=== PATIENT | female | born 1960 | race Caucasian/White ===

== ENCOUNTER → 2021-11-08 12:26 | Outpatient (CLI) | payer MEDICARE, SELFPAY ==
[2021-11-08 13:23] LABS: Add Manual Diff / Slide Review NO; Basophils Absolute Auto 100 /uL (0-100); Basophils Percent Auto 0.8 % (0-2); Eosinophils Absolute Auto 100 /uL (0-450); Eosinophils Percent Auto 1.9 % (2-4); Lymphocytes Absolute Auto 2100 /uL (1100-4500); Lymphocytes Percent Auto 29.5 % (25-40); Mean Corpuscular HGB Conc 33.4 % (30-36); Mean Corpuscular Hemoglobin 28.9 PG (26-34); Mean Corpuscular Volume 86.5 fL (80-100); Monocytes Absolute Auto 700 /uL (0-900); Monocytes Percent Auto 9.7 % (3-14); Neutrophils Absolute Auto 4200 /uL (1500-7000); Neutrophils Percent Auto 58.1 % (50-75); Platelet Count 325 X10^3/uL (150-400); Red Blood Cell Count 4.86 X10^6/uL (4.0-5.2); Red Cell Distribution Width 14.3 % (11.6-14.8); White Blood Cell Count 7.3 X10^3/uL (4.5-11.0)
[2021-11-08 14:02] LABS: Alanine Aminotransferase 32 IU/L (<35); Albumin 4.5 g/dL (3.5-5.0); Albumin Globulin Ratio 1.7 (1.0-2.8); Alkaline Phosphatase 89 U/L (38-126); Aspartate Aminotransferase 33 IU/L (14-36); BUN Creatinine Ratio 20.8 (6-22); Bilirubin Total 0.3 mg/dL (0.2-1.3); Blood Urea Nitrogen 21 mg/dL (7-17); Calcium 10.4 mg/dL (8.4-10.2); Carbon Dioxide 31 mmol/L (22-32); Chloride 102 mmol/L (98-107); Estimated Glomerular Filt Rate 55.5 mL/min (>60); Globulin 2.7 g/dL (1.7-4.1); Glucose 83 mg/dL (80-110); HEMOLYSIS < 15 (0-50); Sodium 141 mmol/L (137-145); Total Protein 7.2 g/dL (6.3-8.2)
== END ==
PROVIDERS: PCP Physician Assistant; Referring Provider Orthopaedic Surgery Orthopaedic Surgery of the Spine; Visit Provider Orthopaedic Surgery Orthopaedic Surgery of the Spine
DX: Z01.812 Encounter for preprocedural laboratory examination (principal); Z01.818 Encounter for other preprocedural examination
CPT/HCPCS: 36415; 80053; 85025; 93005; 93010

== ENCOUNTER → 2021-12-26 10:06 | Outpatient (CLI) | payer MEDICARE, SELFPAY ==
[2021-12-26 12:38] LABS: COVID19 -Nasal RAPID Negative (Negative)
== END ==
PROVIDERS: PCP Physician Assistant; Referring Provider Family Medicine Sleep Medicine; Visit Provider Family Medicine Sleep Medicine
DX: Z20.822 Contact with and (suspected) exposure to COVID-19 (principal)
CPT/HCPCS: 87635; C9803

== ENCOUNTER 2021-12-28 12:26 | Day surgery (SDC) | payer MEDICARE, SELFPAY ==
[2021-11-14 12:50] VITALS: BMI 29.0
[2021-12-28] VITALS (15 sets, daily range): BP systolic 94–120; BP diastolic 46–79; PULSE 64–97; RESP 10–18; TEMP 36.2–36.8; O2SAT 93–99; BMI 29.0
--- NOTE | 2021-12-28 | DI.RAD.S_ITS ---
PROCEDURE: XR LUMBAR SPINE 2-3V INDICATIONS: L4-5 TLIF TECHNIQUE: Intraoperative fluoroscopic views COMPARISON: None. FINDINGS: Intraoperative fluoroscopic views of L4-5 TLIF IMPRESSION: Intraoperative fluoroscopic views of L4-5 TLIF Dictated by: Jian Ashby M.D. on 12/29/2021 at 11:08 Approved by: Jian Ashby M.D. on 12/29/2021 at 11:09
[2021-12-28] MEDS: LACTATED RINGERS 1,000 ML 42 ML IV (13:35)
--- NOTE | 2021-12-28 15:08 | SUR.PREOP ---
Brendaer placed on pt and updated on OR time.
--- NOTE | 2021-12-28 15:31 | PM.PREOP ---
Pre-operative Note COVID-19 COVID-19 status: Negative Result date/Date tested (Pos, Neg/Pending): 12/27/21 Criteria for continued procedure: Expected advancement of disease process, Possibility delay results in more complex future surgery or treatment, Increased loss of function, Continuing or worsening of significant or severe pain, Deterioration of the patient's condition or overall health and Delay expected to result in less-positive ultimate med/surg outcome Interval Note History & Physical reviewed/Exam performed by Physician: Yes Changes to H&P: No
--- NOTE | 2021-12-28 15:56 | P.HP_ITS ---
History of Present Illness History of Present Illness Date Patient Seen: 12/28/21 Time Patient Seen: 15:50 Date of Onset of Symptoms: 10/04/20 Chief complaint: OPB Narrative: Ms. Haro is here for evaluation of her lumbar spine. She has chronic back pain with left leg pain and weakness that has been progressive over time. After discussing risks and benefits of surgical treatment, patient elected to proceed with surgery. Patient History Medical History Anxiety Depression Fibromyalgia Heartburn HLD (hyperlipidemia) Sciatica Surgical History History of ankle surgery (10/2020) History of back surgery (~2013) History of hysterectomy History of surgery History of tonsillectomy and adenoidectomy Hx of foot surgery S/P cervical spinal fusion (~2010) Family & Social History Social History: household members spouse,family Prior Living Arrangements House Safety & Behavioral: Feels Safe in Current Yes Environment Been Physically Hurt or No Threatened By a Person Suicidal Ideation Description None Suicide Plan Description No Plan Tobacco & Substance use: Tobacco type cigarettes Smoking Status Former smoker alcohol intake former Substance Use Type marijuana Meds Home Medications and Allergies Home Medications Medication Instructions Recorded Confirmed Type acetaminophen 500 mg tablet 1,000 mg PO TID-QID 11/14/21 12/28/21 History diclofenac sodium 75 mg 75 mg PO BID 11/14/21 12/28/21 History tablet,delayed release duloxetine 60 mg capsule,delayed 120 mg PO DAILY 11/14/21 12/28/21 History release ezetimibe 10 mg tablet 10 mg PO DAILY 11/14/21 12/28/21 History pregabalin 100 mg capsule 100 mg PO TID 11/14/21 12/28/21 History Allergies Allergy/AdvReac Type Severity Reaction Status Date / Time iodine Allergy Severe Rash Verified 11/14/21 13:05 prochlorperazine Allergy Severe Leg Verified 11/14/21 13:05 [From Compazine] tremors, tongue swelling, jaw locks up erythromycin base AdvReac Intermediate Gastrointestinal Verified 11/14/21 13:05 Upset Exam Vital Signs (past 8 hours): - 12/28/21 13:28 Temperature 97.3 F L Pulse Rate 66 Respiratory Rate 12 Blood Pressure 116/79 Pulse Oximetry 96 Oxygen Delivery Method Room Air Back/Spine/Pelvis Other: Back pain with ROM in lower lumbar. Neuro Other: + straight leg raise to LLE, sensibility decreased to bilateral L4, L5 derma tome, motor strength is 4/5 in bilateral TA/EHL. Assessment & Plan Assessment & Plan narrative: Patient failed conservative care with persisting pain and weakenss in both legs. Risks for surgery include but limited to bleeding, infection, nerve/dura/blood vessel/bowel/bladder injury, need for additional procedure, even . Patient understands and would like to proceed with surgery. I scheduled her for L4-5 TLIF. Time Spent With Patient Critical Care time: I spent a total of [] minutes of critical care time on this patient's care today; this time is exclusive of procedural time.
[2021-12-28] MEDS: CEFAZOLIN 2 GM/20 ML SYRINGE IV ×2 (16:33→23:53)
[2021-12-28] MEDS: BUPIVACAINE 0.25% (PF) 30 ML, EPINEPHrine 0.3 MG INJ (16:51)
[2021-12-28] MEDS: BUPIVACAINE LIPOSOME 266 MG/20 ML VIAL INJ (16:51)
--- NOTE | 2021-12-28 16:54 | SUR.OPER ---
Prone on spine table, head in foam head support, padded chest and pelvic supports, gel pad at knees, lower legs supported by pillows; nipples, genitalia and toes free of pressure, arms secured on foam padded arm boards at <90 degrees abduction. Tape over blanket at thigh secured to table.Gel pad placed between heels.
--- NOTE | 2021-12-28 17:00 | SUR.OPER ---
Patients' cell phone and glasses placed in patients belongings bag by pre-op RN.
--- NOTE | 2021-12-28 18:26 | P.OP_ITS ---
Operative Date/Time/Diagnoses Date of procedure: 12/28/21 Time of procedure: 15:00 Pre-op diagnosis: 1. L4-5 spondylolisthesis 2. L4-5 spinal stenosis with neurogenic claudication Post-op diagnosis: same Procedure & Clinicians Procedure: 1. L4-5 Postero-lateral and posterior interbody fusion 2. L4-5 interbody cage placement. 3. L4-5 decompressive laminectomy with bilateral facetecomies 4. L4-5 Posterior non-segmental instrumentation 5. [employer] of bone marrow from iliac crest 6. Utilization of microsurgical technique and operating microscope Same procedure as scheduled: Yes Indications: Patient has been having chronic back pain and worsening lumbar radiculopathy. Patient failed multiple conservative management with worsening pain weakness and numbness in her lower extremity. Patient has been having difficulty performing activity of daily living. After discussing risks benefits of treatment options, patient elected proceed with surgery. Surgeon: Sheng Arceo Mortgage Sales Manager: Jacque Hopkins Click Yes if Unassisted: No Anesthesia Type: General Operative Notes Closure Type: primary Specimen(s): none sent Prosthetic devices, grafts, tissues, transplants, or devices: Globus revolve screws, Sable cage Estimated Blood Loss (mL): 50 Blood products transfused: none Procedure in detail: Patient was seen in the preoperative area. Risks and benefits of the surgery was discussed with the patient. Informed consent was obtained from the patient and placed in the chart. Surgical site was marked. Patient was taken to the operative room. General anesthesia was administered. Prophylactic antibiotic was given to the patient less than 30 min before the incision was made. Patient was placed into a prone position on the Willie table. Patient's back was then prepped and draped in the sterile fashion. Time-out was performed at this time. Using AP and lateral C-arm imaging the interval between L4-5 was identified and marked on patient's back. A 2 inch incision 2 in from midline was made on the left side first. The fascia was incised in line with skin incision. Globus MARS retractors was placed inside the incision and docked onto the L4 lamina. Using microsurgical technique and operating microscope, a L4 laminectomy and L4-5 facetectomy was performed using a Kerrison rongeur. The disc space at L4-5 was identified. And a total diskectomy was performed at L4-5 level. The endplates were decorticated using a rasp and shaver. The total diskectomy and decortication was performed at L4-5 level in order to to accomplish a L4-5 fusion. The local bone from the laminectomy and facetectomy was saved for local bone grafting. After the total diskectomy and decortication was completed, Trifecta bone graft material was combined with local bone that was harvested earlier. At this time, a separate skin is incision was made over the iliac crest. A Jamshidi needle was inserted into the iliac crest through a separate skin incision. 5 cc of bone marrow aspiration was obtained through the separate skin incision using a Jamshidi needle from the iliac crest. The bone marrow aspiration was combined with local bone and the Trifecta bone grafting material. The bone grafting material was placed into the L4-5 interbody space along with a expandable cage. The cage was expanded to its maximum height using the torque limiting screwdriver. At this time a mirror image incision was made on the right side. The fascia was incised in line with the skin incision. Globus MARS retractor was inserted and docked onto the L4-5 posterolateral gutter. Using the power drill, posterior- lateral decortication was performed at L4-5 level until bleeding cortical bone was identified. The remaining bone grafting material was placed into the L4-5 posterior lateral gutter he order to accomplish posterolateral fusion at the L4- 5 level. Using the double C-arm technique, pedicle screws were placed into the L4-5 pedicles bilaterally. This was done by placing the Jamshidi needle into the pedicles, then placing the guidewires over the Jamshidi needle, and finally placing the cannulated screws over the guidewires bilaterally. After the pedicle screws were placed, 2 titanium rods was locked into the heads of the pedicle screws using locking caps and torque limiting screwdriver. After all the hardware was placed, and confirmed with AP and lateral C-arm imaging, the wound was then irrigated with sterile normal saline and packed with Ray-Marques gauze for 3 min to accomplish hemostasis. After the gauze was removed the deep fascia was closed with #1 Vicryl suture. The subcutaneous layer was closed with 2-0 Vicryl. The skin was closed with skin maral. Patient tolerated the procedure well. There were no complications. Complications: none Post-operative Condition: stable Disposition: PACU Plan for aftercare: Admit to inpatient hospital
[2021-12-28] MEDS: HYDROMORPHONE 2 MG INJ IV ×4 (18:58→19:15)
[2021-12-28] MEDS: OXYCODONE IR 5 MG TABLET PO (19:21)
--- NOTE | 2021-12-28 19:52 | PC.NURSE ---
report from PACU spoke w/ EMORY Castro. patient is heading up to room 215 s/p L4-L5 TLIF. arrived to floor at 1999. a/o, able to voice needs. + CSM checks, dressing to lower spine shows red drainage approx [id number] in size. ice pack in place. CNAs are getting her settled. josias is in the room. patient reports pain 9/10 w/ no facial grimacing, no moaning. appears to be comfortable and drifts off to sleep when not engaged in conversation.
[2021-12-28] MEDS: MAG HYDROX/ALUM/SIMETH 30 ML UDC PO (20:27)
[2021-12-28] MEDS: MAGNESIUM HYDROXIDE 30 ML UDC PO (20:27)
[2021-12-28] MEDS: SENNOSIDES 8.6 MG TABLET 17.2 MG PO (20:27)
[2021-12-28] MEDS: SODIUM CHLORIDE 0.9% 1,000 ML 100 ML IV (20:27)
[2021-12-28] MEDS: ONDANSETRON 4 MG/2 ML INJ IV (20:29)
[2021-12-28] MEDS: DOCUSATE 100 MG CAPSULE PO (20:29)
[2021-12-28] MEDS: hydrOXYzine pamoate 25 MG CAPSULE PO (20:30)
[2021-12-28] MEDS: PREGABALIN 50 MG CAPSULE 100 MG PO (20:30)
[2021-12-28] MEDS: ACETAMINOPHEN 325 MG TABLET 650 MG PO (20:30)
[2021-12-28] MEDS: HYDROMORPHONE 0.5 MG INJ IV (21:09)
[2021-12-28] MEDS: OXYCODONE IR 5 MG TABLET 10 MG PO (21:10)
[2021-12-29] MEDS: OXYCODONE IR 5 MG TABLET 10 MG PO ×4 (00:11→11:40)
[2021-12-29] MEDS: HYDROMORPHONE 0.5 MG INJ IV ×2 (00:12→04:04)
[2021-12-29 03:57] VITALS: BP 121/67; PULSE 84; RESP 17; TEMP 36.8; O2SAT 94
--- NOTE | 2021-12-29 07:45 | PM.DS.1 ---
History of Present Illness History of Present Illness Date Patient Seen: 12/29/21 Time Patient Seen: 07:45 Chief complaint: OPB Narrative: Operative Date/Time/Diagnoses Date of procedure: 12/28/21 Time of procedure: 15:00 Pre-op diagnosis: 1. L4-5 spondylolisthesis 2. L4-5 spinal stenosis with neurogenic claudication Post-op diagnosis: same Procedure & Clinicians Procedure: 1. L4-5 Postero-lateral and posterior interbody fusion 2. L4-5 interbody cage placement. 3. L4-5 decompressive laminectomy with bilateral facetecomies 4. L4-5 Posterior non-segmental instrumentation 5. [place] of bone marrow from iliac crest 6. Utilization of microsurgical technique and operating microscope Same procedure as scheduled: Yes Indications: Patient has been having chronic back pain and worsening lumbar radiculopathy. Patient failed multiple conservative management with worsening pain weakness and numbness in her lower extremity.? Patient has been having difficulty performing activity of daily living.? After discussing risks benefits of treatment options, patient elected proceed with surgery. Surgeon: Sheng Arceo Farm Products Shipper: Jacque Hopkins Click Yes if Unassisted: No Anesthesia Type: General Operative Notes Closure Type: primary Specimen(s): none sent Prosthetic devices, grafts, tissues, transplants, or devices: Globus revolve screws, Sable cage Estimated Blood Loss (mL): 50 Blood products transfused: none Discharge Providers Provider Date of admission: 12/28/2021 Discharge Date: 12/29/21 Primary care physician: Juana Geronimo PA-C Consults: 12/28/21 19:45 Consult to Occupational Therapy Evaluate & Treat Comment: Physician Instructions: Evaluate and treat Consult to Physical Therapy Evaluate & Treat Comment: Physician Instructions: Evaluate and Treat Discharge provider: Jacque Hopkins PA-C Summary Hospital Course Discharge Diagnosis: s/p lumbar fusion Hospital Course: Ms Haro's hospital course was unremarkable. On POD#1, she was feeling well and her pain was well-controlled. She wanted to go home. She was eating and voiding without difficulty. She has help at home from her . She was evaluated by PT prior to discharge. Exam Vital Signs (past 8 hours): - 12/29/21 03:57 Temperature 98.3 F Pulse Rate 84 Respiratory Rate 17 Blood Pressure 121/67 Pulse Oximetry 94 Oxygen Delivery Method Room Air Oxygen Flow Rate 0 Narrative Exam Narrative: AA&O x 3. 5/5 strength in DF, PF, EHL, quadriceps, and hamstrings bilaterally. Sensation to touch intact throughout BLE. Calves soft, compressible, nontender, and without palpable cords or masses. PFSH Medical History Anxiety Depression Fibromyalgia Heartburn HLD (hyperlipidemia) Sciatica Surgical History History of ankle surgery (10/2020) History of back surgery (~2013) History of hysterectomy History of surgery History of tonsillectomy and adenoidectomy Hx of foot surgery S/P cervical spinal fusion (~2010) Social History household members: spouse and family Smoking Status: Former smoker alcohol intake: former Discharge Assessment & Plan Assessment and Plan Assessment: POD#1 s/p 1-level transforaminal lumbar interbody fusion. Recovery as expected. Plan of Treatment: Discharge home with multimodal pain control. Discharge Plan Discharge Plan Patient Disposition: Home Discharge orders & Medications Discharge Orders: Discharge (Order); Ordered 12/29/21 Ordered By: Jacque Hopkins Prescriptions: New hydroxyzine pamoate 25 mg Capsule 25 mg PO Q4HR PRN (Reason: muscle spasm) Qty: 180 1RF docusate sodium 100 mg Capsule 100 mg PO BID Qty: 60 2RF oxycodone 5 mg tablet 5 mg PO Q4H PRN (Reason: pain (scale score 7-10)) Qty: 42 0RF Continued acetaminophen 500 mg Tablet 1,000 mg PO TID-QID 0RF diclofenac sodium 75 mg Tablet,Delayed Release (Dr/Ec) 75 mg PO BID 0RF ezetimibe 10 mg Tablet 10 mg PO DAILY 0RF Label Comments: Takes around noon duloxetine 60 mg Capsule,Delayed Release(Dr/Ec) 120 mg PO DAILY 0RF pregabalin 100 mg Capsule 100 mg PO TID 0RF Follow up/Referrals: Juana Geronimo PA-C [Primary Care Provider] - Sheng Arceo MD [Physician] - As previously scheduled (Follow up with Dr Arceo on 01/12/2022 @ 11:00 at [facility] office in [place]) Diet/Activity/Treatments Diet: Diet as Tolerated Activity: Walk often! No deep bending (over 90 degrees) or twisting at the waist. Skin/Wound/Dressing Care Report to your healthcare provider any signs of infection, such as:: chills, fever, night sweats, increased pain, unusual drainage and unusual redness Dressing: Leave dressing in place until follow up in office; may remove it it becomes wet inside. May shower with covering over dressing. No bathing or otherwise soaking incisions. Do not apply creams, ointments, or lotions to incisions. Visit Report/Discharge Packet Instructions: DI for Transforaminal Lumbar Interbody Fusion Stand Alone Forms: Surgery Discharge Discharge Data Primary Care Provider: Juana Geronimo Attending Provider: Sheng Arceo VTE Deep Vein Thrombosis/Pulmonary Embolism Present on Admission: No
[2021-12-29 08:00] VITALS: BP 121/67; PULSE 96; RESP 16; TEMP 36.8; O2SAT 94
[2021-12-29] MEDS: CEFAZOLIN 2 GM/20 ML SYRINGE IV (08:20)
[2021-12-29] MEDS: PREGABALIN 50 MG CAPSULE 100 MG PO (08:20)
[2021-12-29] MEDS: DOCUSATE 100 MG CAPSULE PO (08:20)
[2021-12-29] MEDS: DULOXETINE 30 MG CAPSULE 120 MG PO (08:20)
[2021-12-29] MEDS: EZETIMIBE 10 MG TABLET PO (08:25)
--- NOTE | 2021-12-29 10:09 | OT.IP.EVAL ---
Current Diagnoses Cauda equina syndrome (12/28/21) Spondylolisthesis, lumbar region (12/28/21) Spinal stenosis, lumbar region with neurogenic claudication (12/28/21) Arthrodesis status (12/28/21) Surgery Performed Operation Date: 12/28/21 14:45 Actual Procedures p L4-5 TLIF(Not Applicable) - Sheng Arceo MD Past Medical History (Last Reviewed 12/28/21 @ 15:58 by Sheng Arceo MD) Anxiety Depression Fibromyalgia Heartburn History of ankle surgery (10/2020) History of back surgery (~2013) History of hysterectomy History of surgery History of tonsillectomy and adenoidectomy HLD (hyperlipidemia) Hx of foot surgery S/P cervical spinal fusion (~2010) Sciatica Surgical History (Last Reviewed 12/28/21 @ 15:58 by Sheng Acreo MD) History of ankle surgery (10/2020) History of back surgery (~2013) History of hysterectomy History of surgery History of tonsillectomy and adenoidectomy Hx of foot surgery S/P cervical spinal fusion (~2010) Occupational Therapy Inpatient Evaluation/Re-Eval M1 PT/OT-IP Prior Functional Status Start: 12/29/21 11:58 Freq: NEEDED Status: Active Protocol: Document 12/29/21 09:30 [facility] (Rec: 12/29/21 12:17 [facility] [id number]) Medical Review Prior Functional Status Communication Independent Mobility and Gait Pt states used a SPC outside and furniture cruise in side. Activities of Daily Living and IADL's Pt needing increased time for ADL and IADL. Social History Household Members spouse,family Living Arrangements House NO steps to enter the front door. Pt has 15 steps with left hand rail going up. Home Environment Standard Height Toilet,Walk in Shower-downstairs, tub/shower upstairs Home Equipment Four Wheel Walker,Straight Cane,Hand Held Shower,Long Handled Shoe Horn,Orthodontic Technician Assistant,Grab Bars Near Toilet Additional Social History Comment Built in seat for shower M2 OT-IP Current Condition Start: 12/29/21 11:58 Freq: Status: Active Protocol: Document 12/29/21 09:30 [facility] (Rec: 12/29/21 12:17 [facility] [id number]) Occupational Therapy Current Condition Current Condition Evaluation Date 12/29/21 Treatment Diagnosis S/p L4-5 TLIF Diagnosis Onset Date 12/28/21 Post Operative Precautions Lumbar Precautions Log Roll,No Twisting,Limit Bending,Lifting Restriction of 10 lbs,Gait Belt above Incisional Area M3 OT- IP Subjective and Pain Start: 12/29/21 11:58 Freq: Status: Active Protocol: Document 12/29/21 09:30 [facility] (Rec: 12/29/21 12:17 [facility] [id number]) OT- Subjective Occupational Therapy Visit Type Type Initial Evaluation Visit Start Time 09:30 Visit Stop Time 10:09 Total Visit Minutes 39 Occupational Therapy Visit Comments Patient Comments Pt agreed to get up for OT eval. Patient/Caregiver Goals TO go home OT Pain Assessment Pain When Pain Assessed At Rest Pain Present Pain Present Pain Reported Location Lower Back Intensity 5 Scale Used Numeric (0 - 10) M4 OT- IP ADL's Start: 12/29/21 11:58 Freq: Status: Active Protocol: Document 12/29/21 09:30 [facility] (Rec: 12/29/21 12:17 [facility] [id number]) OT [id number] Comments OT Self-Feeding Comments Not at meal time. OT ADL-Grooming General Evaluation Grooming Ability Standby Assistance Areas Needing Assistance Retrieving/Set-up of Grooming Items OT ADL-Oral Care General Eval Oral Care Ability Standby Assistance Comments Oral Care Comments VC to hinge at her hips while spitting into the sink or spit into a cup to best follow her back precautions. OT ADL-Dressing General Eval Lower Body Dressing Ability Maximum Assistance Areas Needing Assistance Socks Comments OT Dressing Comments Showed pt LB dressing equipment , however states that her will just assist with her dressing needs. OT ADL-Toileting Comments OT Toileting Comments Pt not having to go. OT ADL-Bathing Comments OT Bathing Comments Pt has a built in seat and may benefit form a shower chair. M5 OT- IP IADL's Start: 12/29/21 11:58 Freq: Status: Active Protocol: Document 12/29/21 09:30 [facility] (Rec: 12/29/21 12:17 [facility] [id number]) OT-Instrumental Activities of Daily Living Home Safety Awareness Awareness of Need for Assistance at Home Good Awareness Ability to Problem Solve Emergency Able to Problem Solve Situations Home Safety Comments Pt's to be home to assist to assist pt for all her needs. M6 OT- IP Functional Cognition Start: 12/29/21 11:58 Freq: Status: Active Protocol: Document 12/29/21 09:30 [facility] (Rec: 12/29/21 12:17 [facility] [id number]) Cognitive Factors Limiting Selfcare Function Cognitive Ability Level of Alertness Alert Attention Span Ability Capable of Focused Attention, Capable of Sustained Attention Ability to Follow Commands Able to Follow One Step Commands Memory Description No Deficits Noted Safety Awareness Underestimates Need for Assistance Cognitive Comments Cognitive Assessment Comments VC to keep the FWW in front of her at all times. VC to push up from the bed when coming to stand. Pt tends to want to grab the FWW to stand. Educated if insisting on doing so to be sure her is there to hold onto the FWW. OT- Vision and Hearing OT- Hearing Assessment OT- Hearing Assessment WFL OT- Vision Assessment Visual Acuity Glasses For Reading M7 OT- IP Mobility and Balance Start: 12/29/21 11:58 Freq: Status: Active Protocol: Document 12/29/21 09:30 [facility] (Rec: 12/29/21 12:17 [facility] [id number]) OT- Bed Mobility Assessment Supine to Sit Supine to Sit Assist Contact Guard Assistance,1 Person Assistance Sit to Supine Sit to Supine Assist Minimal Assistance,1 Person Assistance OT-Transfer Assessment Sit to and From Stand Sit to and from Stand Contact Guard Assistance Transfers Transfer Ability Contact Guard Assistance Technique Transfer Destination Bed,Chair Transfer Technique Stand Step Pivot Devices Transfer Assistive Devices Gait Belt,Front Wheeled Walker OT- Balance Assessment Sitting Balance and Reactions Static Sitting Balance Ability Good Dynamic Sitting Balance Ability Fair Standing Balance and Reactions Static Standing Balance Ability Fair M8 OT- IP Objective Assessments Start: 12/29/21 11:58 Freq: Status: Active Protocol: Document 12/29/21 09:30 [facility] (Rec: 12/29/21 12:17 [facility] [id number]) OT-Muscle Tone Assessment Muscle Tone WNL Yes M9 OT- IP Assessment and Plan Start: 12/29/21 11:58 Freq: Status: Active Protocol: Document 12/29/21 09:30 [facility] (Rec: 12/29/21 12:17 [facility] [id number]) OT Summary Assessment and Plan Potential Rehabilitation Potential Good Analytic Complexity at Evaluation Low Summary OT Impairments Pain,Balance,Functional Mobility,Dressing,Toileting, Bathing,Toilet Transfers, Shower Transfers Progress Towards Goals Progressing Toward Goals Assessment Summary Pt low complexity and main barriers are steps, and now needing one person assist for ADl and mobility needs. Pt's present and states will be able to assist with her needs. Pt looking to go home when medically stable. Goals Grooming Goal Independent Dressing Goal Moderate Assistance Toileting Goal Standby Assistance Bathing Goal Minimal Assistance Toilet Transfer Goal Independent Shower Transfer Goal Independent Days to Meet Goals 5 Frequency of Treatment Frequency Of Treatment Once a Day Treatment Plan OT Treatment Plan ADL Training,Functional Mobility,Patient/Family Education,Discharge Planning Other Treatment Recommendations and Next Caregiver training Treatment Focus Discharge Recommendations OT Discharge Recommendations Home with Assistance Home Equipment Needs FWW Transportation Needs at Discharge Private Vehicle
--- NOTE | 2021-12-29 10:50 | PT.IIE ---
Current Diagnoses Cauda equina syndrome (12/28/21) Spondylolisthesis, lumbar region (12/28/21) Spinal stenosis, lumbar region with neurogenic claudication (12/28/21) Arthrodesis status (12/28/21) Surgery Performed Operation Date: 12/28/21 14:45 Actual Procedures p L4-5 TLIF(Not Applicable) - Sheng Arceo MD Medical History (Last Reviewed 12/28/21 @ 15:58 by Sheng Arceo MD) Anxiety Depression Fibromyalgia Heartburn HLD (hyperlipidemia) Sciatica Physical Therapy Inpatient Evaluation/Re-Eval M1 PT/OT-IP Prior Functional Status Start: 12/29/21 11:58 Freq: NEEDED Status: Discharge Protocol: Document 12/29/21 09:30 [facility] (Rec: 12/29/21 12:17 [facility] [id number]) Medical Review Prior Functional Status Communication Independent Mobility and Gait Pt states used a SPC outside and furniture cruise in side. Activities of Daily Living and IADL's Pt needing increased time for ADL and IADL. Social History Household Members spouse,family Living Arrangements House Home Environment Standard Height Toilet,Walk in Shower Home Equipment Four Wheel Walker,Straight Cane,Hand Held Shower,Long Handled Shoe Horn,Instrument Worker,Grab Bars Near Toilet Additional Social History Comment Built in seat for shower M1 PT/OT-IP Prior Functional Status Start: 12/29/21 13:10 Freq: NEEDED Status: Active Protocol: Document 12/29/21 10:50 [facility] (Rec: 12/29/21 13:28 [facility] [id number]) Medical Review Prior Functional Status Medical History Reviewed Yes Communication able to make needs known Mobility and Gait pt stated that she is independent with all mobilities and ambualtion without AD indoors but usually furniture cruises but occasionally uses her SPC indoors as well; uses SPC for outdoor mobility Social History Household Members spouse Living Arrangements House Number of Floors (Floors) Two Floors Number of Stairs To Enter/Railing? no steps to enter 15 steps L rail ascending to bedroom level Home Environment High Toilet,Walk in Shower,Tub /Shower,Built-In Shower Seat Home Equipment Four Wheel Walker,Straight Cane,Shower Seat with Backrest ,Hand Held Shower,Instrument Worker,Grab Bars Near Toilet,Grab Bars In Shower M2 PT-IP Current Condition Start: 12/29/21 13:10 Freq: NEEDED Status: Active Protocol: Document 12/29/21 10:50 [facility] (Rec: 12/29/21 13:28 AB [id number]) Physical Therapy Current Condition Current Condition Evaluation Date 12/29/21 Treatment Diagnosis s/p L4-5 TLIF; difficulty in walking Onset Date 12/28/21 M3 PT-IP Subjective Start: 12/29/21 13:10 Freq: NEEDED Status: Active Protocol: Document 12/29/21 10:50 [facility] (Rec: 12/29/21 13:28 AB [id number]) Subjective Physical Therapy Visit Type Type Initial Evaluation Visit Start Time 10:50 Visit Stop Time 11:45 Total Visit Minutes 55 Number of PEA 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[employer]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 Visits 0 Physical Therapy Visit Comments Patient Comments pt is agreeable to do PT; wants to go home Therapy Pain Assessment Pain When Pain Assessed At Rest Pain Present Pain Present Pain Reported Location Lower Back Intensity 5 Scale Used Numeric (0 - 10) Pain Management Techniques Distraction,Modification of Treatment,Re-positioning, Timing of Activity with Medications M4 PT-IP Mobility and Gait Start: 12/29/21 13:10 Freq: NEEDED Status: Active Protocol: Document 12/29/21 10:50 [facility] (Rec: 12/29/21 13:28 AB [id number]) PT-Bed Mobility Assessment Rolling Type of Rolling Log Rolling Level of Assist Standby Assistance Supine to Sit Supine to Sit Standby Assistance Sit to Supine Sit to Supine Standby Assistance PT-Transfer Assessment Sit to and From Stand Sit to and from Stand Standby Assistance,Contact Guard Assistance Equipment Transfer Assistive Device Gait Belt,Front Wheeled Walker Orthotic/Prosthetic Devices or Brace: No Transfers Transfer Destination Chair Transfer Technique ambulated Transfer Ability Level of Assist Standby Assistance,Contact Guard Assistance,1 Person Assistance,Use of Upper Extremities Comments Mobility Comments reviewed back precautions with pt and pt able to recall. BP supine 90/58. completed log roll supine to sit SBA but with cues. able to sit on EOB SBA. BP checked: 126/86. completed sit to stand CGA and cues for techniques. BP checked in standin/69. pt ambulated in room using FWW ~ 15 ft with c/o slight dizziness but dissipated. sat on chair. BP checked: 122/74 . caregiver training conducted. spouse in room and educated on use of safety belt and how to assist pt. spouse was able to put safety belt on pt and assisted pt with sit to stand and ambulation in room using FWW. pt sat on chair. BP checked again: 132/74. pt agreed to do stairs. educated pt on use of 4WW (pt does not have a FWW at home and has a 4WW). spouse assisted pt with ambulation in the hallway ~ 125 ft using 4WW. educated pt on stair climbing. pt completed up/down steps holding L rail with B hands and spouse was able to assist pt safely. pt c/o momentary dizziness and c/o increase back pain to 8/10. assisted pt back to her room. ambulated from w/c to EOB using FWW CGA with spouse assisting. stated dizziness is gone. completed bed mobility sit<>supine SBA. pt requested to stay in bed. positioned pt in bed. call light and table placed withinr each. left pt with spouse. BP supine at end of tx session: 129/77. informed nurse regarding pt's mobility. pt and spouse without any other concerns. Gait Assessment Gait Gait Assistance Required: Contact Guard Assist Distance (Feet) 125 Able to Maintain Weight Bearing Status Yes During Gait Assistive Devices Assistive Device Gait Belt,4 Wheeled Walker Orthotic/Prosthetic Devices or Brace: No Gait Deviations General Gait Pattern Decreased Stride Length, Decreased Feet Clearance Factors Limiting Gait Function Factors Limiting Gait Function Decreased Activity Tolerance, Decreased Strength,Limited Range of Motion,Pain,Poor Balance,Poor Safety Awareness Stair Climbing Assessment Evaluation Level of Assist On Stairs Contact Guard Assistance,1 Person Assistance Devices Stair Climbing Assistive Devices Left Railing Technique/Endurance Stair Climbing Direction Ascend and Descend Stair Climbing Technique Step to Step Number of Steps Climbed 3 Query Text: Stair Climbing Set # Repetitions (reps) 3 Comments Stair Climbing Comments pls refer to mobility section for details PT-Balance Assessment Sitting Balance and Reactions Static Sitting Balance Ability Good Dynamic Sitting Balance Ability Good Standing Balance and Reactions Static Standing Balance Ability Fair Dynamic Standing Balance Ability Fair Device Used FWW M5 PT-IP Objective Assessments Start: 12/29/21 13:10 Freq: NEEDED Status: Active Protocol: Document 12/29/21 10:50 [facility] (Rec: 12/29/21 13:28 AB [id number]) Orientation Orientation/Cognition Level of Alertness Alert Orientation Name Language Function Ability No Deficits Noted Safety Awareness Decreased Safety Awareness Memory Description No Deficits Noted Gross Range of Motion Lower Extremity ROM Assessment Within Functional Limits Strength Lower Extremity Strength Hip 4-/5 Knee 4-/5 Sensation Assessment Sensation Gross Sensation WNL Muscle Tone Muscle Tone WNL Yes M6 PT-IP Treatment Start: 12/29/21 13:10 Freq: NEEDED Status: Active Protocol: Document 12/29/21 10:50 [facility] (Rec: 12/29/21 13:28 AB [id number]) Physical Therapy Treatment Education Education Provided Precautions,Weight Bearing Status,Post-Op Packet,Safety M7 PT-IP Assessment and Plan Start: 12/29/21 13:10 Freq: NEEDED Status: Active Protocol: Document 12/29/21 10:50 [facility] (Rec: 12/29/21 13:28 AB [id number]) PT Summary Assessment and Plan Potential Rehabilitation Potential Good Status of Condition at Evaluation Stable Summary Impairments Pain,ROM,Strength,Balance, Coordination,Sensation,Tone, Cognition,Bed Mobility, Transfers,Gait,Activity Tolerance Assessment Summary Pt requiring CGA with ambulation using FWW/4WW. caregiver training conducted and spouse was able to assist pt with mobility. pt may go home when stable. Goals Bed Mobility Goal Independent Transfer Goal Independent,Four Wheeled Walker Gait Goal Independent,Four Wheel Walker Gait Distance 300 Other Goals up/down 15 ft using L rail mod I Days to Meet Goals 5 Frequency of Treatment Frequency Of Treatment Twice a Day Treatment Plan Physical Therapy Treatment Plan Bed Mobility Training,Transfer Training,Gait Training, Therapeutic Exercise,Balance Retraining,Post Op Education, Discharge Planning,Hot or Cold Pack,Neuromuscular Re-ed, Coordination Retraining,Manual Therapy Precautions Lumbar Precautions Log Roll,No Twisting,Limit Bending,Lifting Restriction of 10 lbs,Gait Belt above Incisional Area Recommendations To Nursing Amount of Assist Needed 1 Person Assist Discharge Recommendations PT Discharge Recommendations Home with 21/05 Assist Available Transportation Needs at Discharge Private Vehicle
--- NOTE | 2021-12-29 11:44 | PC.NURSE ---
Addendum entered by Jada Rooney R.N. 12/29/21 12:40: Pt transportation here. Pt escorted via W/C by staff to waiting vehicle. Satisfactory post op course Original Note: Pt dsg CDI. Med early in shift for discomfort. Worked w/ PT & OT w/o incidence SL D/C'd intact. Pt discharge instructions given w/understanding. Preparing for D/C
--- NOTE | 2021-12-29 12:17 | OT.IP.EVAL ---
Current Diagnoses Cauda equina syndrome (12/28/21) Spondylolisthesis, lumbar region (12/28/21) Spinal stenosis, lumbar region with neurogenic claudication (12/28/21) Arthrodesis status (12/28/21) Surgery Performed Operation Date: 12/28/21 14:45 Actual Procedures p L4-5 TLIF(Not Applicable) - Sheng Arceo MD Past Medical History (Last Reviewed 12/28/21 @ 15:58 by Sheng Arceo MD) Anxiety Depression Fibromyalgia Heartburn History of ankle surgery (10/2020) History of back surgery (~2013) History of hysterectomy History of surgery History of tonsillectomy and adenoidectomy HLD (hyperlipidemia) Hx of foot surgery S/P cervical spinal fusion (~2010) Sciatica Surgical History (Last Reviewed 12/28/21 @ 15:58 by Sheng Arceo MD) History of ankle surgery (10/2020) History of back surgery (~2013) History of hysterectomy History of surgery History of tonsillectomy and adenoidectomy Hx of foot surgery S/P cervical spinal fusion (~2010) Occupational Therapy Inpatient Evaluation/Re-Eval M1 PT/OT-IP Prior Functional Status Start: 12/29/21 11:58 Freq: NEEDED Status: Active Protocol: Document 12/29/21 09:30 [facility] (Rec: 12/29/21 12:17 [facility] [id number]) Medical Review Prior Functional Status Communication Independent Mobility and Gait Pt states used a SPC outside and furniture cruises inside. Activities of Daily Living and IADL's Pt needing increased time for ADL and IADL. Social History Household Members spouse,family Living Arrangements House Home Environment Standard Height Toilet,Walk in Shower Home Equipment Four Wheel Walker,Straight Cane,Hand Held Shower,Long Handled Shoe Horn,Electronics Technician,Grab Bars Near Toilet Additional Social History Comment Built in seat for shower M2 OT-IP Current Condition Start: 12/29/21 11:58 Freq: Status: Active Protocol: Document 12/29/21 09:30 [facility] (Rec: 12/29/21 12:17 [facility] [id number]) Occupational Therapy Current Condition Current Condition Evaluation Date 12/29/21 Treatment Diagnosis S/p L4-5 TLIF Diagnosis Onset Date 12/28/21 Post Operative Precautions Lumbar Precautions Log Roll,No Twisting,Limit Bending,Lifting Restriction of 10 lbs,Gait Belt above Incisional Area M3 OT- IP Subjective and Pain Start: 12/29/21 11:58 Freq: Status: Active Protocol: Document 12/29/21 09:30 [facility] (Rec: 12/29/21 12:17 [facility] [id number]) OT- Subjective Occupational Therapy Visit Type Type Initial Evaluation Visit Start Time 09:30 Visit Stop Time 10:09 Total Visit Minutes 39 Occupational Therapy Visit Comments Patient Comments Pt agreed to get up for OT eval. Patient/Caregiver Goals TO go home OT Pain Assessment Pain When Pain Assessed At Rest Pain Present Pain Present Pain Reported Location Lower Back Intensity 5 Scale Used Numeric (0 - 10) M4 OT- IP ADL's Start: 12/29/21 11:58 Freq: Status: Active Protocol: Document 12/29/21 09:30 [facility] (Rec: 12/29/21 12:17 [facility] [id number]) OT [id number] Comments OT Self-Feeding Comments Not at meal time. OT ADL-Grooming General Evaluation Grooming Ability Standby Assistance Areas Needing Assistance Retrieving/Set-up of Grooming Items OT ADL-Oral Care General Eval Oral Care Ability Standby Assistance Comments Oral Care Comments VC to hinge at her hips while spitting into the sink or spit into a cup to best follow her back precautions. OT ADL-Dressing General Eval Lower Body Dressing Ability Maximum Assistance Areas Needing Assistance Socks Comments OT Dressing Comments showed pt LB dressing equipment , however states that her will just assist with her dressing needs. OT ADL-Toileting Comments OT Toileting Comments Pt not having to go. Suggested at home wearing pads would be helpful so not having to cui to the bathroom at night. OT ADL-Bathing Comments OT Bathing Comments Pt has a built in seat and may benefit from a shower chair. M5 OT- IP IADL's Start: 12/29/21 11:58 Freq: Status: Active Protocol: Document 12/29/21 09:30 [facility] (Rec: 12/29/21 12:17 [facility] [id number]) OT-Instrumental Activities of Daily Living Home Safety Awareness Awareness of Need for Assistance at Home Good Awareness Ability to Problem Solve Emergency Able to Problem Solve Situations Home Safety Comments Pt's to be home to assist pt for all her needs. M6 OT- IP Functional Cognition Start: 12/29/21 11:58 Freq: Status: Active Protocol: Document 12/29/21 09:30 [facility] (Rec: 12/29/21 12:17 [facility] [id number]) Cognitive Factors Limiting Selfcare Function Cognitive Ability Level of Alertness Alert Attention Span Ability Capable of Focused Attention, Capable of Sustained Attention Ability to Follow Commands Able to Follow One Step Commands Memory Description No Deficits Noted Safety Awareness Underestimates Need for Assistance Cognitive Comments Cognitive Assessment Comments VC to keep the FWW in front of her at all times. VC to push up from the bed when coming to stand. Pt tends to want to grab the FWW to stand. Educated if insisting on doing so to be sure her is there to hold onto the FWW. OT- Vision and Hearing OT- Hearing Assessment OT- Hearing Assessment WFL OT- Vision Assessment Visual Acuity Glasses For Reading M7 OT- IP Mobility and Balance Start: 12/29/21 11:58 Freq: Status: Active Protocol: Document 12/29/21 09:30 [facility] (Rec: 12/29/21 12:17 [facility] [id number]) OT- Bed Mobility Assessment Supine to Sit Supine to Sit Assist Contact Guard Assistance,1 Person Assistance Sit to Supine Sit to Supine Assist Minimal Assistance,1 Person Assistance OT-Transfer Assessment Sit to and From Stand Sit to and from Stand Contact Guard Assistance Transfers Transfer Ability Contact Guard Assistance Technique Transfer Destination Bed,Chair Transfer Technique Stand Step Pivot Devices Transfer Assistive Devices Gait Belt,Front Wheeled Walker OT- Balance Assessment Sitting Balance and Reactions Static Sitting Balance Ability Good Dynamic Sitting Balance Ability Fair Standing Balance and Reactions Static Standing Balance Ability Fair M8 OT- IP Objective Assessments Start: 12/29/21 11:58 Freq: Status: Active Protocol: Document 12/29/21 09:30 [facility] (Rec: 12/29/21 12:17 [facility] [id number]) OT-Muscle Tone Assessment Muscle Tone WNL Yes M9 OT- IP Assessment and Plan Start: 12/29/21 11:58 Freq: Status: Active Protocol: Document 12/29/21 09:30 [facility] (Rec: 12/29/21 12:17 [facility] [id number]) OT Summary Assessment and Plan Potential Rehabilitation Potential Good Analytic Complexity at Evaluation Low Summary OT Impairments Pain,Balance,Functional Mobility,Dressing,Toileting, Bathing,Toilet Transfers, Shower Transfers Progress Towards Goals Progressing Toward Goals Assessment Summary Pt low complexity and main barriers are steps, and now needing one person assist for ADl and mobility needs. Pt's present and states will be able to assist with her needs. Pt looking to go home when medically stable. Goals Grooming Goal Independent Dressing Goal Moderate Assistance Toileting Goal Standby Assistance Bathing Goal Minimal Assistance Toilet Transfer Goal Independent Shower Transfer Goal Independent Days to Meet Goals 5 Frequency of Treatment Frequency Of Treatment Once a Day Treatment Plan OT Treatment Plan ADL Training,Functional Mobility,Patient/Family Education,Discharge Planning Other Treatment Recommendations and Next Caregiver training Treatment Focus Discharge Recommendations OT Discharge Recommendations Home with Assistance Home Equipment Needs FWW Transportation Needs at Discharge Private Vehicle
--- NOTE | 2022-01-04 13:03 | PM.HP.1 ---
History of Present Illness History of Present Illness Date Patient Seen: 12/28/21 Time Patient Seen: 07:45 Date of Onset of Symptoms: 08/17/21 Chief complaint: OPB Narrative: Ms. Haro is here for evaluation of her lumbar spine. She has chronic back pain with left leg pain and weakness that has been progressive over time. After discussing risks and benefits of surgical treatment, patient elected to proceed with surgery. Patient History Medical History Anxiety Depression Fibromyalgia Heartburn HLD (hyperlipidemia) Sciatica Surgical History History of ankle surgery (10/2020) History of back surgery (~2013) History of hysterectomy History of surgery History of tonsillectomy and adenoidectomy Hx of foot surgery S/P cervical spinal fusion (~2010) Family & Social History Social History: household members spouse Prior Living Arrangements House Safety & Behavioral: Feels Safe in Current Yes Environment Been Physically Hurt or No Threatened By a Person Suicidal Ideation Description None Suicide Plan Description No Plan Tobacco & Substance use: Tobacco type cigarettes Smoking Status Former smoker alcohol intake former Substance Use Type marijuana Meds Home Medications and Allergies Home Medications Medication Instructions Recorded Confirmed Type acetaminophen 500 mg tablet 1,000 mg PO TID-QID 11/14/21 12/28/21 History diclofenac sodium 75 mg 75 mg PO BID 11/14/21 12/28/21 History tablet,delayed release duloxetine 60 mg capsule,delayed 120 mg PO DAILY 11/14/21 12/28/21 History release ezetimibe 10 mg tablet 10 mg PO DAILY 11/14/21 12/28/21 History pregabalin 100 mg capsule 100 mg PO TID 11/14/21 12/28/21 History docusate sodium 100 mg capsule 100 mg PO BID #60 cap 12/29/21 Rx hydroxyzine pamoate 25 mg capsule 25 mg PO Q4HR PRN #180 cap 12/29/21 Rx oxycodone 5 mg tablet 5 mg PO Q4H PRN #42 tab 12/29/21 Rx Allergies Allergy/AdvReac Type Severity Reaction Status Date / Time iodine Allergy Severe Rash Verified 11/14/21 13:05 prochlorperazine Allergy Severe Leg Verified 11/14/21 13:05 [From Compazine] tremors, tongue swelling, jaw locks up erythromycin base AdvReac Intermediate Gastrointestinal Verified 11/14/21 13:05 Upset Review of Systems Review of Systems ROS: Yes All systems reviewed with the patient and are negative except as otherwise documented Exam Vital Signs (past 8 hours): Oxygen Delivery Method Room Air Oxygen Flow Rate 0 Back/Spine/Pelvis Other: Limit ROM due to pain in lumbar spine Neuro Other: + straight leg raise to LLE, sensibility decreased to left L4, L5 dermatome, motor strength 4/5 in left TA and EHL Assessment & Plan Assessment & Plan narrative: Patient has back pain and lumbar radiculopathy failing conservative care. Risks for surgery include but not limited to bleeding, infection, nerve/dura/bladder/bowel/blood vessel injury, need for additional procedure, even . Pt understands and would like to proceed with surgery. I scheduled her for L4-5 TLIF. Time Spent With Patient Critical Care time: I spent a total of [] minutes of critical care time on this patient's care today; this time is exclusive of procedural time. Quality VTE Deep Vein Thrombosis/Pulmonary Embolism Present on Admission: No
== END 2021-12-29 12:30 | disposition home or self-care (01) ==
LOC: OR 12:27 → AC 12:27
PROVIDERS: PCP Physician Assistant; Referring Provider Orthopaedic Surgery Orthopaedic Surgery of the Spine; Visit Provider Orthopaedic Surgery Orthopaedic Surgery of the Spine
PROC: (CPT 22633; principal; 2021-12-28 14:45)
DX: M43.16 Spondylolisthesis, lumbar region (principal); M48.062 Spinal stenosis, lumbar region with neurogenic claudication; G83.4 Cauda equina syndrome
CPT/HCPCS: 22633; 22853; 63052; 22840; 20939; 72100; 76000; 97161; 97165; 97530; 97535; C1776; C1713; C9290; J0171; J0690; J1100; J1170; J2405; J2704; J3010